=== PATIENT | male | born 1940 | race Caucasian/White ===

== ENCOUNTER 2022-09-21 15:42 | Inpatient (IN) | payer OTHER, SELFPAY ==
[2022-09-21 16:34] VITALS: BP 139/78; PULSE 78; RESP 18; TEMP 36.3; O2SAT 97
--- NOTE | 2022-09-21 19:15 | P.CONHOSP_ITS ---
History of Present Illness Data of Consult Service Date: 09/21/22 Primary Care Provider: Unknown Physician HPI Reason for consult: Admission H&P Pt is an 82-year-old male with a PMH significant for schizophrenia, bipolar disorder, xuq-jetlroa-srnnvyhic DM, diabetic neuropathy, diastolic CHF, and history of bladder cancer who was seen for cy psych admission H&P. Patient seen and evaluated in his room where he was noted to have resting tremors of upper extremities bilaterally. Patient alert and oriented x3. He voices no acute medical concerns at this time, but does state that he would like to leave and go home as soon as possible. Patient denies chest pain/pressure, palpitations. No shortness of breath. Denies fever, chills, nausea, vomiting, abdominal pain. Of note patient is a transfer from [facility] where he presented due to confusion, paranoia, disorganized thoughts, and suicidal ideation. In the hospital he had a fall and was evaluated for a stroke. MRI showed global cerebral volume loss especially in the frontal and temporal lobes that was consistent with Alzheimer's. MRI showed mild narrowing of the proximal right common carotid but no evidence of acute stroke. Review of Systems Review of Systems: Patient denies any acute complaints No chest pain/pressure, palpitations No shortness of breath Denies abdominal pain, fever, chills, nausea, vomiting Yes all other systems are reviewed and are negative [facility] Medical History (Updated 09/21/22 @ 19:45 by SUNITHA Frye) Bladder cancer Diastolic CHF Social History Household Members: None Housing: House Do you presently have visiting nurse or other home services: Yes Patient Tobacco Use Status: Never used Tobacco Use of substances other than those prescribed or required for medical reasons: No Have you been hit, kicked, punched, or otherwise hurt by someone within the past year? If so, by whom?: No Do you feel safe in your current relationship?: No Current Relationship Is there a partner from a previous relationship who is making you feel unsafe now?: No Are you made to feel afraid or neglected: No Advance Directives: No Advance Directives Information Provided: Yes Do you have thoughts of harming others: None Do you have a plan to hurt others: No Plan Recently lost weight without trying: No Nutrition Risks: No Nutritional Risk Poor oral hygiene: No Meds Allergies Allergy/AdvReac Type Severity Reaction Status Date / Time primidone AdvReac Unknown Verified 09/21/22 19:52 Active Medications: Current Medications Acetaminophen (Acetaminophen 325 Mg Tablet) 650 mg PO Q6H PRN PRN Reason: Headache/Pain Mild Scale (1-3) Al Hydroxide/Mg Hydroxide (Magnesium Hydrox/Alum Hydrox 30 Ml Oral.Susp) 30 ml PO Q6H PRN PRN Reason: Heartburn/Nausea Hydroxyzine HCl (Hydroxyzine Hcl 25 Mg Tablet) 25 mg PO Q6H PRN PRN Reason: Anxiety Magnesium Hydroxide (Milk Of Magnesia 30 Ml Oral.Susp) 30 ml PO DAILY PRN PRN Reason: Constipation Pharmacy Consult (Consult Rx Perform Med Rec) 1 each MISCELLANE ONCE PRN PRN Reason: Consult order Trazodone HCl (Trazodone Hcl 50 Mg Tablet) 50 mg PO BEDTIME PRN PRN Reason: Insomnia Home Medications Medication Instructions Recorded Confirmed Last Taken Type acetaminophen 325 mg tablet 650 mg PO Q6H PRN Pain 09/21/22 09/21/22 Unknown History aspirin 81 09/21/22 Unknown History bumetanide 2 mg PO QAM 09/21/22 09/21/22 Unknown History cholecalciferol (vitamin D3) 1,000 units BID 09/21/22 09/21/22 Unknown History dextroamphetamine sulfate 10 mg 10 mg PO DAILY 09/21/22 09/21/22 Unknown History tablet divalproex 250 mg tablet,extended 500 mg PO BEDTIME 09/21/22 09/21/22 Unknown History release 24 hr divalproex 250 mg tablet,extended 750 mg PO QAM 09/21/22 09/21/22 Unknown History release 24 hr docusate sodium 100 mg capsule 100 mg PO BID 09/21/22 09/21/22 Unknown History (Colace) enoxaparin 40 mg subcut DAILY 09/21/22 09/21/22 Unknown History ferrous sulfate 325 mg PO QAM 09/21/22 09/21/22 Unknown History finasteride 5 mg tablet 5 mg PO DAILY 09/21/22 09/21/22 Unknown History gabapentin 400 mg capsule 400 mg PO BID 09/21/22 09/21/22 Unknown History insulin lispro 100 unit/mL 1 sliding scale dose subcut 09/21/22 09/21/22 Unknown History subcutaneous solution USEASDIRECTD memantine 10 mg tablet 10 mg PO BID 09/21/22 09/21/22 Unknown History metformin 1,000 mg tablet,extended 1,000 mg PO BID 09/21/22 09/21/22 Unknown History release 24hr polyethylene glycol 3350 17 gram 17 g PO BID 09/21/22 09/21/22 Unknown History oral powder packet (Miralax) potassium chloride 10 meq PO BID 09/21/22 09/21/22 Unknown History pravastatin 10 mg tablet 10 mg PO DAILY 09/21/22 09/21/22 Unknown History risperidone 1 mg tablet 1 mg PO DAILY 09/21/22 09/21/22 Unknown History risperidone 2 mg tablet 2 mg PO BEDTIME 09/21/22 09/21/22 Unknown History rosuvastatin 40 mg tablet 40 mg PO DAILY 09/21/22 09/21/22 Unknown History sennosides 8.6 mg tablet (senna) 8.6 mg PO BEDTIME 09/21/22 09/21/22 Unknown History trazodone 50 mg tablet 75 mg PO BEDTIME 09/21/22 09/21/22 Unknown History Physical Exam Vital Signs and Narrative: Vital Signs: Last Vital Signs Temp 97.4 F 09/21/22 16:34 Pulse 78 09/21/22 16:34 Resp 18 09/21/22 16:34 BP 139/78 09/21/22 16:34 Pulse Ox 97 09/21/22 16:34 O2 Del Method 09/21/22 16:34 Constitutional: Alert, in no acute distress. Mental Status: Oriented to person, place and time. Eyes: Pupils are equal, round, and reactive to light. Ear, Nose, and Throat: Oropharynx clear, mucous membranes moist. Ears and nose without deformities. Trachea midline. Respiratory: Clear to auscultation bilaterally. No wheezing, rales, or rhonchi. Cardiovascular: S1, S2 regular. No murmurs, rubs, or gallops. Gastrointestinal: Abdomen soft, non-tender, non-distended. Normal bowel sounds. Neurologic: Cranial nerves II-XII are grossly intact. No focal neurological deficits noted. Moves all extremities spontaneously. resting tremors of both upper extremities. Skin: No rashes or lesions noted. Musculoskeletal: 5/5 strength of upper and lower extremities bilaterally. Extremities: No edema. Psychiatric: Normal mood and affect. Assessment and Plan (1) Diet-controlled diabetes mellitus: Status: Acute (2) Schizophrenia: Status: Acute (3) Bipolar disorder: Status: Acute Plan Pt is an 82-year-old male with a PMH significant for schizophrenia, bipolar disorder, put-mkzmghj-mlilqxezc DM, diabetic neuropathy, diastolic CHF, and history of bladder cancer who was seen for cy psych admission H&P. Pt does not have an acute medical complaints at this time. 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 Signing off at this time. Please contact us if there are any additional questions or concerns. Time Spent With Patient Time: Total time managing care of this patient today ____ minutes.
[2022-09-21 20:14] LABS: Glucose, Whole Blood 152 mg/dL (60-115)
--- NOTE | 2022-09-21 20:27 | PC.ADMIT ---
Patient admitted from [facility] with PMH of schizophrenia, bipolar disorder, non-insulin dependent diabetes, diabetic neuropathy, CHF, HX of bladder cancer. Patient noted to have bilateral resting tremors of upper extremitites. Patient alert and oriented x3. States he is here to get my meds adjusted . Patient further states, 'I want to get out of here and go home. Patient presented in hospital attire, neatly groomed, pleasant and cooperative with admission. Patient notes indicate he fell at [facility] in ED where he presented d/t confusion, paranoia, disorganized thoughts and suicidal ideation. When questioned by TW about the SI patient stated, I love myself. Why would I want to hurt myself?. Patient denies acute complaints as well as Si/HI/AVH. Patient is able to ambulate independently with walker. Utilizing briefs d/t intermittent incontinence. Patient reports using CPAP which will be brought in by daughter.
[2022-09-21] MEDS: Gabapentin 400 MG CAPSULE PO (21:39)
[2022-09-21] MEDS: Divalproex Sodium ER 500 MG TAB.ER.24H PO (21:39)
[2022-09-21] MEDS: risperiDONE 2 MG TABLET PO (21:39)
[2022-09-21] MEDS: Memantine HCl 10 MG TABLET PO (21:39)
[2022-09-21] MEDS: Docusate Sodium 100 MG CAPSULE PO (21:39)
[2022-09-21] MEDS: traZODone HCL 25 MG HALFTAB 75 MG PO (21:39)
[2022-09-21 21:48] VITALS: BP 128/77; PULSE 90; RESP 20; TEMP 36.2; O2SAT 94
--- NOTE | 2022-09-21 22:50 | PHA.MEDREC ---
Pharmacy Consult ? Medication Reconciliation Pharmacy has completed the medication reconciliation. med list obtained from doc and updated in med rec... dr. bailey notified of changes.
[2022-09-22] MEDS: Acetaminophen 325 MG TABLET 650 MG PO (04:15)
[2022-09-22] MEDS: hydrOXYzine HCL 25 MG TABLET PO (04:16)
--- NOTE | 2022-09-22 08:12 | HO.PSYADMNOT ---
HPI Date of Service: 09/22/22 Chief Complaint: SI Sources of Information: patient interviewed, chart reviewed and crisis/core team assessment reviewed Additional Sources of Information: Daughter HPI Subjective Notes: Garcia Warning and Conditional Voluntary Narrative: Mr. Melchor is a 82 year-old male with hx of schizophrenia who was brought to [facility] due to increase depression and suicidal ideation. In the ED, pt denied any signs of depression and denies suicidal ideation. He appears to have some degree of memory impairments as he was not able to recall events leading to him going to the hospital. Per [employer] crisis assessment, pt's daughter and [facility] RN reported that pt has been reporting increase depression and suicidal thoughts which appear to be related to him starting amantadine some months ago (this is a potential side effect of amantadine). On the unit, pt presents as pleasant and denies suicidal ideation. Pt reports he is doing well and hopes to go home soon. He does not remember telling anyone that he had suicidal ideation. He reports I think this is punishment. He denies VH/AH and does not appear internally preoccupied. He is oriented to place, month and year but not situation and appears to struggle retaining information regarding days prior and reason for him to be brought up to the hospital. Past Psychiatric History: Inpt: multiple in the past but no dates or places reported by pt or daughter OP: MIGUEL ÁNGEL Hooper Suicide attempts: none Past medication trials: risperidone Medical Evaluation Reviewed: Yes MRI completed while at [facility] showed global cerebral volume loss in frontal and temporal lobes. Narrowing of the proximal right common carotid but no evidence of acute stroke. [facility] Medical History (Updated 09/21/22 @ 19:45 by SUNITHA Frye) Bladder cancer Diastolic CHF Diagnostics Labs 09/22/22 08:09 Meds/Allergies Meds Home Medications Medication Instructions Recorded Confirmed Type acetaminophen 325 mg tablet 650 mg PO Q6H PRN Pain 09/21/22 09/21/22 History aspirin 81 mg tablet,delayed 81 mg PO DAILY 09/21/22 09/21/22 History release bumetanide 2 mg tablet 2 mg PO DAILY 09/21/22 09/21/22 History cholecalciferol (vitamin D3) 25 25 mcg PO BID 09/21/22 09/21/22 History mcg (1,000 unit) tablet dextroamphetamine sulfate 10 mg 10 mg PO DAILY 09/21/22 09/21/22 History tablet divalproex 250 mg tablet,extended 750 mg PO BID 09/21/22 09/21/22 History release 24 hr docusate sodium 100 mg capsule 100 mg PO BID PRN Constipation 09/21/22 09/21/22 History (Colace) enoxaparin 40 mg/0.4 mL 40 mg subcut DAILY 09/21/22 09/21/22 History subcutaneous syringe ferrous sulfate 325 mg (65 mg 325 mg PO DAILY 09/21/22 09/21/22 History iron) tablet finasteride 5 mg tablet 5 mg PO DAILY 09/21/22 09/21/22 History gabapentin 400 mg capsule 400 mg PO BID 09/21/22 09/21/22 History insulin lispro 100 unit/mL 1 sliding scale dose subcut 09/21/22 09/21/22 History subcutaneous solution USEASDIRECTD memantine 10 mg tablet 10 mg PO BID 09/21/22 09/21/22 History polyethylene glycol 3350 17 gram 17 g PO BID 09/21/22 09/21/22 History oral powder packet (Miralax) potassium chloride 10 mEq 10 meq PO BID 09/21/22 09/21/22 History capsule,extended release risperidone 1 mg tablet 1 mg PO DAILY 09/21/22 09/21/22 History risperidone 2 mg tablet 2 mg PO BEDTIME 09/21/22 09/21/22 History risperidone microspheres 50 mg/2 50 mg IM Q14D 09/21/22 09/22/22 History mL intramuscular susp,ext release (Risperdal Consta) rosuvastatin 40 mg tablet 40 mg PO BEDTIME 09/21/22 09/21/22 History sennosides 8.6 mg tablet (senna) 17.2 mg PO BEDTIME 09/21/22 09/22/22 History trazodone 50 mg tablet 75 mg PO BEDTIME PRN Sleep 09/21/22 09/21/22 History amantadine HCl 100 mg PO DAILY 09/22/22 09/22/22 History ascorbic acid (vitamin C) 500 mg PO DAILY 09/22/22 09/22/22 History metformin 1,000 mg PO BID 09/22/22 09/22/22 History mineral oil-hydrophil petrolat 1 appl topical DAILY PRN Dry Skin 09/22/22 09/22/22 History topical ointment (Aquaphor topical ointment) Allergies Allergies Allergy/AdvReac Type Severity Reaction Status Date / Time primidone AdvReac Unknown Verified 09/21/22 19:52 Mental Status Exam Mental Status Exam Narrative: Appearance: wearing hospital gown, fair hygiene, in NAD Behavior: cooperative Psychomotor: bilat resting tremors Speech: clear, regular rate/rhythm/volume, spontaneous TP: mostly linear TC: no overt psychosis or delusions Mood: good Affect: congruent, brightens at times SI: denies HI: denies AH/VH: none Delusions: none reported or noted Insight/judgment: impaired secondary to memory/cog impairments Memory/cog: alert, oriented to place, month, year, not situation, unable to recall events leading to this hospitalization. pending MOCA. Assessment & Plan Assessment & Plan (1) Schizophrenia: Status: Acute Code(s): F20.9 - Schizophrenia, unspecified Plan Mr. Melchor is a 82 year-old male with hx of schizophrenia. Pt was brought to [facility] due recurrent depression and suicidal ideation with no plan since he was started on amantadine (this is common side effect). Pt also presents with cognitive and memory impairments, unable to recall events leading to this admission. Amantadine has been stopped for 2 weeks. Pt has presented with bright affect, denies suicidal or homicidal ideation. No signs of aggression towards self or others. Pt does not appear with active psychosis or delusional content. PLAN 1. admit to s1, cv, 15 minutes checks for safety 2. stop amantadine, continue op medications including risperidone consta and dextroamphetamine 10mg po daily. 3. obtain collateral information 4. Aftercare planning. Patient educated on: diagnosis Reason for continued inpatient stay Substantial Risk for: harm to self and inability to function Statement Statement: I have reviewed the history and physical and performed a pertinent examination on my patient. No changes have occurred unless specified. If the History and Physical was not performed prior to admission, the Hospitalist's service will be consulted for completing the admission physical. Time Spent With Patient Time: Total time managing care of this patient today ____ minutes.
[2022-09-22 08:30] VITALS: BP 139/76; PULSE 85; RESP 18; TEMP 36.2; O2SAT 98
[2022-09-22] MEDS: Gabapentin 400 MG CAPSULE PO ×2 (08:30→20:10)
[2022-09-22] MEDS: Aspirin Enteric Coated 81 MG TABLET.DR PO (08:30)
[2022-09-22] MEDS: Bumetanide 1 MG TABLET 2 MG PO (08:30)
[2022-09-22] MEDS: risperiDONE 1 MG TABLET PO (08:30)
[2022-09-22] MEDS: Dextroamphetamine Sulfate 5 MG TABLET 10 MG PO (08:31)
[2022-09-22] MEDS: Memantine HCl 10 MG TABLET PO ×2 (08:31→20:10)
[2022-09-22] MEDS: Pravastatin Sodium 10 MG TABLET PO (08:31)
[2022-09-22] MEDS: Divalproex Sodium ER 250 MG TAB.ER.24H 750 MG PO ×2 (08:32→20:09)
[2022-09-22] MEDS: Docusate Sodium 100 MG CAPSULE PO ×2 (08:32→20:10)
[2022-09-22] MEDS: Cholecalciferol (Vitamin D3) 25 MCG TABLET PO ×2 (08:33→20:10)
[2022-09-22] MEDS: Ferrous Sulfate 324 MG TABLET.DR PO (08:33)
[2022-09-22] MEDS: Finasteride 5 MG TABLET PO (08:34)
[2022-09-22] MEDS: polyethylene glycoL 3350 17 GM POWD.PACK PO ×2 (08:34→20:10)
[2022-09-22 08:43] LABS: Estimated Average Glucose 100 mg/dL; Hemoglobin A1c % 5.1 %
[2022-09-22 08:49] LABS: Alanine Aminotransferase 11 U/L (0-40); Albumin Level 3.4 g/dL (3.5-5.0); Alkaline Phosphatase 33 U/L (39-117); Anion Gap 11 (12-20); Aspartate Amino Transferase 12 U/L (5-37); Bilirubin Total 0.5 mg/dL (0.0-1.0); Blood Urea Nitrogen 30 mg/dL (9-16); Calcium 9.2 mg/dL (8.4-10.2); Carbon Dioxide 31 mmol/L (22-29); Chloride 103 mmol/L (96-108); Cholesterol 95 mg/dL; Estimated Glomerular Filt Rate 57; Glucose Fasting 101 mg/dL (60-99); HDL Cholesterol 30 mg/dL; LDL Cholesterol Calculated 44 mg/dl; Potassium 4.2 mmol/L (3.3-5.1); Sodium 141 mmol/L (135-145); Total Protein 5.8 g/dL (6.5-8.0); Triglycerides 105 mg/dL
[2022-09-22 09:05] LABS: Thyroid Stimulating Hormone 0.65 uIU/mL (0.32-4.0)
[2022-09-22 09:20] LABS: Folate 7.3 ng/mL (> or = 4.0); Vitamin B12 238 pg/mL (200-900)
[2022-09-22] MEDS: Enoxaparin Sodium 40 MG/0.4 ML SYRINGE SUBCUT (09:27)
[2022-09-22 16:28] LABS: Glucose, Whole Blood 214 mg/dL (60-115)
[2022-09-22] MEDS: Insulin Lispro 100 UNIT/ML 3 ML VIAL SUBCUT (16:45)
[2022-09-22 18:00] VITALS: BP 152/94; PULSE 84; RESP 20; TEMP 36.6; O2SAT 97
--- NOTE | 2022-09-22 18:48 | PC.NURSE ---
Meds verified with Bebe Washington Rn oupt nurse at [facility]. Daughter brought in pt's Risperdal Consta and Adderall. Risperdal Consta 50 mg IM administered this shift in left deltoid, site of pt's choice. Pt tolerated well.
[2022-09-22 19:55] LABS: Glucose, Whole Blood 104 mg/dL (60-115)
[2022-09-22] MEDS: risperiDONE 2 MG TABLET PO (20:10)
[2022-09-22] MEDS: Atorvastatin Calcium 80 MG TABLET PO (20:10)
[2022-09-22] MEDS: Sennosides 8.6 MG TABLET PO (20:10)
[2022-09-22] MEDS: traZODone HCL 25 MG HALFTAB 75 MG PO (20:58)
[2022-09-23 06:00] VITALS: BP 131/72; PULSE 89; RESP 18; TEMP 36.1; O2SAT 96
[2022-09-23 07:55] LABS: Glucose, Whole Blood 83 mg/dL (60-115)
--- NOTE | 2022-09-23 08:50 | P.PNPSI_ITS ---
Subjective Subjective Date of Service: 09/23/22 Reason For Visit: SI Subjective Notes: Conditional Voluntary Interim History: The nursing staff reported the patient received her Risperdal Consta yesterday. He has refused CPAP at night since he does not like to be on one-to-one. His fasting blood sugar has been on 08/30 today in the morning. She takes the Zypre xa every night and the staff has noticed artery dyskinesia. On interview the patient is alert oriented x4, cooperative and pleasant and reports feeling dysphoric. Able to contract for safety in the facility. Mental Status Exam Mental Status Exam Patient Orientation: Person and Situation Level of Consciousness: Awake and Appropriate Patient Behavior: Guarded and Passive Mood Description: Withdrawn Affect Description: Constricted Patient Cognition Impaired: Yes Ability to Follow Directions: Good Speech Pattern: Clear Hallucinations: Auditory Delusions: Paranoid Ideation Thought Process: Goal Oriented and Slowed Thinking Thought Content: positive for [place], positive for Circumstantial, positive for Perseveration and positive for Poverty of Content Judgement: Fair Diagnostics Vital Signs (24Hr): Vital Signs - 24 hr 09/22/22 18:00 Temperature 97.8 F Pulse Rate 84 Respiratory Rate 20 Blood Pressure 152/94 H Pulse Oximetry 97 Oxygen Delivery Method Room Air Labs 09/22/22 08:09 Labs: Laboratory Results - last 48 hr 09/21/22 09/22/22 09/22/22 20:10 08:09 08:09 Sodium 141 Potassium 4.2 Chloride 103 Carbon Dioxide 31 H Anion Gap 11 L BUN 30 H Creatinine 1.22 Estim Creat Clear Calc TNP Estimated GFR 57 POC Glucose 152 H Fasting Glucose 101 H Estimat Average Glucose 100 Hemoglobin A1c % 5.1 Calcium 9.2 Total Bilirubin 0.5 AST 12 ALT 11 Alkaline Phosphatase 33 L Total Protein 5.8 L Albumin 3.4 L Triglycerides 105 Cholesterol 95 LDL Cholesterol, Calc 44 HDL Cholesterol 30 Vitamin B12 Folate TSH 0.65 09/22/22 09/22/22 09/22/22 08:09 16:22 19:50 Sodium Potassium Chloride Carbon Dioxide Anion Gap BUN Creatinine Estim Creat Clear Calc Estimated GFR POC Glucose 214 H 104 Fasting Glucose Estimat Average Glucose Hemoglobin A1c % Calcium Total Bilirubin AST ALT Alkaline Phosphatase Total Protein Albumin Triglycerides Cholesterol LDL Cholesterol, Calc HDL Cholesterol Vitamin B12 238 Folate 7.3 TSH 09/23/22 07:49 Sodium Potassium Chloride Carbon Dioxide Anion Gap BUN Creatinine Estim Creat Clear Calc Estimated GFR POC Glucose 83 Fasting Glucose Estimat Average Glucose Hemoglobin A1c % Calcium Total Bilirubin AST ALT Alkaline Phosphatase Total Protein Albumin Triglycerides Cholesterol LDL Cholesterol, Calc HDL Cholesterol Vitamin B12 Folate TSH Medications Medications Current Medications Acetaminophen (Acetaminophen 325 Mg Tablet) 650 mg PO Q6H PRN PRN Reason: Headache/Pain Mild Scale (1-3) Last Admin: 09/22/22 04:15 Dose: 650 mg Al Hydroxide/Mg Hydroxide (Magnesium Hydrox/Alum Hydrox 30 Ml Oral.Susp) 30 ml PO Q6H PRN PRN Reason: Heartburn/Nausea Ascorbic Acid (Ascorbic Acid 500 Mg Tablet) 500 mg PO DAILY [facility] Aspirin (Aspirin Enteric Coated 81 Mg Tablet.) 81 mg PO DAILY [facility] Last Admin: 09/22/22 08:30 Dose: 81 mg Atorvastatin Calcium (Atorvastatin Calcium 80 Mg Tablet) 80 mg PO BEDTIME [facility] Last Admin: 09/22/22 20:10 Dose: 80 mg Bumetanide (Bumetanide 1 Mg Tablet) 2 mg PO DAILY [facility] Last Admin: 09/22/22 08:30 Dose: 2 mg Dextrose (Dextrose 50 % 25 Gm/50 Ml Syringe) 25 gm IVPUSH Q15M PRN; Protocol PRN Reason: per Hypoglycemia Standing Ord. Divalproex Sodium (Divalproex Sodium Er 250 Mg Tab.Er.24h) 750 mg PO BID [facility] Last Admin: 09/22/22 20:09 Dose: 750 mg Docusate Sodium (Docusate Sodium 100 Mg Capsule) 100 mg PO BID [facility] Last Admin: 09/22/22 20:10 Dose: 100 mg Enoxaparin Sodium (Enoxaparin Sodium 40 Mg/0.4 Ml Syringe) 40 mg SUBCUT DAILY [facility] Last Admin: 09/22/22 09:27 Dose: 40 mg Ferrous Sulfate (Ferrous Sulfate 324 Mg Tablet.) 324 mg PO DAILY [facility] Last Admin: 09/22/22 08:33 Dose: 324 mg Finasteride (Finasteride 5 Mg Tablet) 5 mg PO DAILY [facility] Last Admin: 09/22/22 08:34 Dose: 5 mg Gabapentin (Gabapentin 400 Mg Capsule) 400 mg PO BID [facility] Last Admin: 09/22/22 20:10 Dose: 400 mg Glucose (Glucose Gel 15 Gm Gel..Gram.) 15 gm PO Q15M PRN; Protocol PRN Reason: per Hypoglycemia Standing Ord. Hydroxyzine HCl (Hydroxyzine Hcl 25 Mg Tablet) 25 mg PO Q6H PRN PRN Reason: Anxiety Last Admin: 09/22/22 04:16 Dose: 25 mg Insulin Human Lispro (Insulin Lispro 100 Unit/Ml 3 Ml Vial) 0 unit SUBCUT QIDACHS [facility]; Protocol Last Admin: 09/23/22 08:36 Dose: Not Given Magnesium Hydroxide (Milk Of Magnesia 30 Ml Oral.Susp) 30 ml PO DAILY PRN PRN Reason: Constipation Memantine (Memantine Hcl 10 Mg Tablet) 10 mg PO BID [facility] Last Admin: 09/22/22 20:10 Dose: 10 mg Pt Own (Risperdal (Consta 50 Mg)) 50 mg IM Q14D [facility] Last Admin: 09/22/22 15:17 Dose: 50 mg Pt Own ( Dextroamphetamine Sa 10 Mg) 10 mg PO MOTUWETHFR@0900 [facility] Polyethylene Glycol (Polyethylene Glycol 3350 17 Gm Powd.Pack) 17 gm PO BID [facility] Last Admin: 09/22/22 20:10 Dose: 17 gm Potassium Chloride (Potassium Chloride Er 10 Meq Capsule.Er) 10 meq PO BID [facility] Last Admin: 09/22/22 20:10 Dose: 10 meq Risperidone (Risperidone 1 Mg Tablet) 1 mg PO DAILY [facility] Last Admin: 09/22/22 08:30 Dose: 1 mg Risperidone (Risperidone 2 Mg Tablet) 2 mg PO BEDTIME [facility] Last Admin: 09/22/22 20:10 Dose: 2 mg Senna (Sennosides 8.6 Mg Tablet) 8.6 mg PO BEDTIME [facility] Last Admin: 09/22/22 20:10 Dose: 8.6 mg Trazodone HCl (Trazodone Hcl 25 Mg Halftab) 75 mg PO BEDTIME PRN PRN Reason: Sleep Last Admin: 09/22/22 20:58 Dose: 75 mg Vitamin D (Cholecalciferol (Vitamin D3) 25 Mcg Tablet) 25 mcg PO BID [facility] Last Admin: 09/22/22 20:10 Dose: 25 mcg Allergies Allergies Allergy/AdvReac Type Severity Reaction Status Date / Time primidone AdvReac Unknown Verified 09/21/22 19:52 Assessment & Plan Assessment & Plan (1) Diet-controlled diabetes mellitus: Status: Acute Code(s): E11.9 - Type 2 diabetes mellitus without complications (2) Schizophrenia: Status: Acute Code(s): F20.9 - Schizophrenia, unspecified (3) Bipolar disorder: Status: Acute Code(s): F31.9 - Bipolar disorder, unspecified Plan Pt is an 82-year-old male with a PMH significant for schizophrenia, bipolar disorder, qpo-ykidutm-mxzxxumub DM, diabetic neuropathy, diastolic CHF, and history of bladder cancer who was seen for cy psych admission H&P. Pt does not have an acute medical complaints at this time. 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 Signing off at this time. Please contact us if there are any additional questions or concerns. Psychiatry plan 1. Gather collateral information. 2. Continue antipsychotics and mood stabilizers. 3. Continue medical workout Reason for contiued inpatient stay Substantial Risk for: inability to function, rapid decompensation and med/psych decompensation Time Spent With Patient Time: Total time managing care of this patient today _20___ minutes.
[2022-09-23] MEDS: risperiDONE 1 MG TABLET PO (09:08)
[2022-09-23] MEDS: Aspirin Enteric Coated 81 MG TABLET.DR PO (09:08)
[2022-09-23] MEDS: Cholecalciferol (Vitamin D3) 25 MCG TABLET PO ×2 (09:08→20:18)
[2022-09-23] MEDS: Docusate Sodium 100 MG CAPSULE PO ×2 (09:09→20:18)
[2022-09-23] MEDS: Finasteride 5 MG TABLET PO (09:09)
[2022-09-23] MEDS: Bumetanide 1 MG TABLET 2 MG PO (09:09)
[2022-09-23] MEDS: Divalproex Sodium ER 250 MG TAB.ER.24H 750 MG PO ×2 (09:09→20:18)
[2022-09-23] MEDS: Ferrous Sulfate 324 MG TABLET.DR PO (09:09)
[2022-09-23] MEDS: Ascorbic Acid 500 MG TABLET PO (09:09)
[2022-09-23] MEDS: Memantine HCl 10 MG TABLET PO ×2 (09:09→20:18)
[2022-09-23] MEDS: Gabapentin 400 MG CAPSULE PO ×2 (09:09→20:18)
[2022-09-23] MEDS: Enoxaparin Sodium 40 MG/0.4 ML SYRINGE SUBCUT (09:10)
[2022-09-23] MEDS: polyethylene glycoL 3350 17 GM POWD.PACK PO ×2 (09:10→20:19)
[2022-09-23 11:29] LABS: Glucose, Whole Blood 106 mg/dL (60-115)
[2022-09-23 16:37] LABS: Glucose, Whole Blood 120 mg/dL (60-115)
[2022-09-23 18:00] VITALS: BP 140/75; PULSE 77; RESP 17; TEMP 36.4; O2SAT 96
[2022-09-23 20:07] LABS: Glucose, Whole Blood 116 mg/dL (60-115)
[2022-09-23] MEDS: Atorvastatin Calcium 80 MG TABLET PO (20:18)
[2022-09-23] MEDS: Sennosides 8.6 MG TABLET PO (20:18)
[2022-09-23] MEDS: risperiDONE 2 MG TABLET PO (20:18)
[2022-09-23] MEDS: traZODone HCL 25 MG HALFTAB 75 MG PO (20:29)
[2022-09-24 07:30] VITALS: BP 129/75; PULSE 75; RESP 16; TEMP 36.8; O2SAT 94
[2022-09-24 07:43] LABS: Glucose, Whole Blood 115 mg/dL (60-115)
--- NOTE | 2022-09-24 09:05 | P.PNPSI_ITS ---
Subjective Subjective Date of Service: 09/24/22 Reason For Visit: SI Subjective Notes: Section 7 and Section 8 Interim History: The nursing staff reported the patient used his CPAP machine last night. His fasting blood sugars were in a good range no need of coverage. He ambulates with a walker he denies new complaints and he had been fully compliant with treatment. His tremors are very noticeable. He slept well last night. On interview the patient denies new symptoms. He remains internally preoccupied. He got his Risperdal Consta to days ago Mental Status Exam Mental Status Exam Patient Appearance: Appropriate Patient Orientation: Person and Situation Level of Consciousness: Restless and Alert Patient Behavior: Guarded and Passive Mood Description: Withdrawn Affect Description: Constricted Patient Cognition Impaired: Yes Ability to Follow Directions: Good Speech Pattern: Impoverished and Monotone Hallucinations: None Delusions: Paranoid Ideation Thought Process: Distracted and Slowed Thinking Thought Content: positive for [place], positive for Poverty of Content and positive for Tangential Judgement: Fair Diagnostics Vital Signs (24Hr): Vital Signs - 24 hr 09/23/22 18:00 Temperature 97.5 F Pulse Rate 77 Respiratory Rate 17 Blood Pressure 140/75 H Pulse Oximetry 96 Oxygen Delivery Method Room Air Labs 09/22/22 08:09 Labs: Laboratory Results - last 48 hr 09/22/22 09/22/22 09/22/22 08:09 08:09 16:22 POC Glucose 214 H Vitamin B12 238 Folate 7.3 TSH 0.65 09/22/22 09/23/22 09/23/22 19:50 07:49 11:23 POC Glucose 104 83 106 Vitamin B12 Folate TSH 09/23/22 09/23/22 09/24/22 16:26 19:58 07:38 POC Glucose 120 H 116 H 115 Vitamin B12 Folate TSH Medications Medications Current Medications Acetaminophen (Acetaminophen 325 Mg Tablet) 650 mg PO Q6H PRN PRN Reason: Headache/Pain Mild Scale (1-3) Last Admin: 09/22/22 04:15 Dose: 650 mg Al Hydroxide/Mg Hydroxide (Magnesium Hydrox/Alum Hydrox 30 Ml Oral.Susp) 30 ml PO Q6H PRN PRN Reason: Heartburn/Nausea Ascorbic Acid (Ascorbic Acid 500 Mg Tablet) 500 mg PO DAILY [facility] Last Admin: 09/23/22 09:09 Dose: 500 mg Aspirin (Aspirin Enteric Coated 81 Mg Tablet.Dr) 81 mg PO DAILY [facility] Last Admin: 09/23/22 09:08 Dose: 81 mg Atorvastatin Calcium (Atorvastatin Calcium 80 Mg Tablet) 80 mg PO BEDTIME [facility] Last Admin: 09/23/22 20:18 Dose: 80 mg Bumetanide (Bumetanide 1 Mg Tablet) 2 mg PO DAILY [facility] Last Admin: 09/23/22 09:09 Dose: 2 mg Dextrose (Dextrose 50 % 25 Gm/50 Ml Syringe) 25 gm IVPUSH Q15M PRN; Protocol PRN Reason: per Hypoglycemia Standing Ord. Divalproex Sodium (Divalproex Sodium Er 250 Mg Tab.Er.24h) 750 mg PO BID [facility] Last Admin: 09/23/22 20:18 Dose: 750 mg Docusate Sodium (Docusate Sodium 100 Mg Capsule) 100 mg PO BID [facility] Last Admin: 09/23/22 20:18 Dose: 100 mg Enoxaparin Sodium (Enoxaparin Sodium 40 Mg/0.4 Ml Syringe) 40 mg SUBCUT DAILY [facility] Last Admin: 09/23/22 09:10 Dose: 40 mg Ferrous Sulfate (Ferrous Sulfate 324 Mg Tablet.) 324 mg PO DAILY [facility] Last Admin: 09/23/22 09:09 Dose: 324 mg Finasteride (Finasteride 5 Mg Tablet) 5 mg PO DAILY [facility] Last Admin: 09/23/22 09:09 Dose: 5 mg Gabapentin (Gabapentin 400 Mg Capsule) 400 mg PO BID [facility] Last Admin: 09/23/22 20:18 Dose: 400 mg Glucose (Glucose Gel 15 Gm Gel..Gram.) 15 gm PO Q15M PRN; Protocol PRN Reason: per Hypoglycemia Standing Ord. Hydroxyzine HCl (Hydroxyzine Hcl 25 Mg Tablet) 25 mg PO Q6H PRN PRN Reason: Anxiety Last Admin: 09/22/22 04:16 Dose: 25 mg Insulin Human Lispro (Insulin Lispro 100 Unit/Ml 3 Ml Vial) 0 unit SUBCUT QIDACHS [facility]; Protocol Last Admin: 09/24/22 08:51 Dose: Not Given Magnesium Hydroxide (Milk Of Magnesia 30 Ml Oral.Susp) 30 ml PO DAILY PRN PRN Reason: Constipation Memantine (Memantine Hcl 10 Mg Tablet) 10 mg PO BID [facility] Last Admin: 09/23/22 20:18 Dose: 10 mg Pt Own (Risperdal (Consta 50 Mg)) 50 mg IM Q14D [facility] Last Admin: 09/22/22 15:17 Dose: 50 mg Pt Own ( Dextroamphetamine Sa 10 Mg) 10 mg PO MOTUWETHFR@0900 [facility] Polyethylene Glycol (Polyethylene Glycol 3350 17 Gm Powd.Pack) 17 gm PO BID [facility] Last Admin: 09/23/22 20:19 Dose: 17 gm Potassium Chloride (Potassium Chloride Er 10 Meq Capsule.Er) 10 meq PO BID [facility] Last Admin: 09/23/22 20:18 Dose: 10 meq Risperidone (Risperidone 1 Mg Tablet) 1 mg PO DAILY [facility] Last Admin: 09/23/22 09:08 Dose: 1 mg Risperidone (Risperidone 2 Mg Tablet) 2 mg PO BEDTIME [facility] Last Admin: 09/23/22 20:18 Dose: 2 mg Senna (Sennosides 8.6 Mg Tablet) 8.6 mg PO BEDTIME [facility] Last Admin: 09/23/22 20:18 Dose: 8.6 mg Trazodone HCl (Trazodone Hcl 25 Mg Halftab) 75 mg PO BEDTIME PRN PRN Reason: Sleep Last Admin: 09/23/22 20:29 Dose: 75 mg Vitamin D (Cholecalciferol (Vitamin D3) 25 Mcg Tablet) 25 mcg PO BID [facility] Last Admin: 09/23/22 20:18 Dose: 25 mcg Allergies Allergies Allergy/AdvReac Type Severity Reaction Status Date / Time primidone AdvReac Unknown Verified 09/21/22 19:52 Assessment & Plan Assessment & Plan (1) Diet-controlled diabetes mellitus: Status: Acute Code(s): E11.9 - Type 2 diabetes mellitus without complications (2) Schizophrenia: Status: Acute Code(s): F20.9 - Schizophrenia, unspecified (3) Bipolar disorder: Status: Acute Code(s): F31.9 - Bipolar disorder, unspecified Plan Pt is an 82-year-old male with a PMH significant for schizophrenia, bipolar disorder, [id number] DM, diabetic neuropathy, diastolic CHF, and history of bladder cancer who was seen for cy psych admission H&P. Pt does not have an acute medical complaints at this time. 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 Signing off at this time. Please contact us if there are any additional questions or concerns. Psychiatry plan 1. Gather collateral information. 2. Continue antipsychotics and mood stabilizers. 3. Continue medical workout Reason for contiued inpatient stay Substantial Risk for: inability to function, rapid decompensation and med/psych decompensation Time Spent With Patient Time: Total time managing care of this patient today __20__ minutes.
[2022-09-24] MEDS: Enoxaparin Sodium 40 MG/0.4 ML SYRINGE SUBCUT (09:06)
[2022-09-24] MEDS: Ferrous Sulfate 324 MG TABLET.DR PO (09:08)
[2022-09-24] MEDS: Memantine HCl 10 MG TABLET PO ×2 (09:08→20:56)
[2022-09-24] MEDS: Aspirin Enteric Coated 81 MG TABLET.DR PO (09:08)
[2022-09-24] MEDS: Bumetanide 1 MG TABLET 2 MG PO (09:08)
[2022-09-24] MEDS: Cholecalciferol (Vitamin D3) 25 MCG TABLET PO ×2 (09:08→20:56)
[2022-09-24] MEDS: polyethylene glycoL 3350 17 GM POWD.PACK PO ×2 (09:09→20:57)
[2022-09-24] MEDS: Gabapentin 400 MG CAPSULE PO ×2 (09:09→20:57)
[2022-09-24] MEDS: Ascorbic Acid 500 MG TABLET PO (09:09)
[2022-09-24] MEDS: Finasteride 5 MG TABLET PO (09:09)
[2022-09-24] MEDS: risperiDONE 1 MG TABLET PO (09:09)
[2022-09-24] MEDS: Docusate Sodium 100 MG CAPSULE PO ×2 (09:09→20:57)
[2022-09-24] MEDS: Divalproex Sodium ER 250 MG TAB.ER.24H 750 MG PO ×2 (10:57→20:56)
[2022-09-24 11:30] LABS: Glucose, Whole Blood 135 mg/dL (60-115)
[2022-09-24 16:46] LABS: Glucose, Whole Blood 149 mg/dL (60-115)
[2022-09-24 18:00] VITALS: BP 140/76; PULSE 86; RESP 18; TEMP 36.1; O2SAT 98
[2022-09-24] MEDS: Sennosides 8.6 MG TABLET PO (20:56)
[2022-09-24] MEDS: risperiDONE 2 MG TABLET PO (20:56)
[2022-09-24] MEDS: Atorvastatin Calcium 80 MG TABLET PO (20:57)
[2022-09-24 21:58] LABS: Glucose, Whole Blood 100 mg/dL (60-115)
[2022-09-25 06:00] VITALS: BP 148/69; PULSE 86; RESP 16; TEMP 36.7; O2SAT 98
[2022-09-25 07:48] LABS: Glucose, Whole Blood 132 mg/dL (60-115)
[2022-09-25] MEDS: Ascorbic Acid 500 MG TABLET PO (08:30)
[2022-09-25] MEDS: Divalproex Sodium ER 250 MG TAB.ER.24H 750 MG PO ×2 (08:30→21:27)
[2022-09-25] MEDS: Finasteride 5 MG TABLET PO (08:30)
[2022-09-25] MEDS: Aspirin Enteric Coated 81 MG TABLET.DR PO (08:31)
[2022-09-25] MEDS: Memantine HCl 10 MG TABLET PO ×2 (08:31→21:28)
[2022-09-25] MEDS: Cholecalciferol (Vitamin D3) 25 MCG TABLET PO ×2 (08:31→21:28)
[2022-09-25] MEDS: Bumetanide 1 MG TABLET 2 MG PO (08:31)
[2022-09-25] MEDS: Gabapentin 400 MG CAPSULE PO ×2 (08:31→21:28)
[2022-09-25] MEDS: Ferrous Sulfate 324 MG TABLET.DR PO (08:31)
[2022-09-25] MEDS: Docusate Sodium 100 MG CAPSULE PO ×2 (08:31→21:28)
[2022-09-25] MEDS: risperiDONE 1 MG TABLET PO (08:31)
[2022-09-25] MEDS: Enoxaparin Sodium 40 MG/0.4 ML SYRINGE SUBCUT (08:32)
[2022-09-25] MEDS: polyethylene glycoL 3350 17 GM POWD.PACK PO ×2 (08:32→21:26)
[2022-09-25 12:00] LABS: Glucose, Whole Blood 98 mg/dL (60-115)
--- NOTE | 2022-09-25 12:28 | HO.PSYCHPN ---
Subjective Subjective Date of Service: 09/25/22 Reason For Visit: SI Subjective Notes: Conditional Voluntary Interim History: We had meeting with daughter. Pt has denied suicidal or homicidal ideation throughout s admission. He can't recall events leading to this admission. Reportedly, when pt started on amantadine presented as much more depressed and expressing SI without a plan. Amantadine has been stopped. Pt slept through the night. He is visible on the unit, social and seen smiling throughout the day. We discussed cognitive decline and memory impairments. OT discussed with family results of ACL. Medication Compliance: Yes Side effects from medications: No Attending Groups: Yes Review of Systems Review of Systems Patient denies any acute complaints No chest pain/pressure, palpitations No shortness of breath Denies abdominal pain, fever, chills, nausea, vomiting Yes all other systems are reviewed and are negative Mental Status Exam Mental Status Exam Narrative: Appearance: wearing hospital gown, fair hygiene, in NAD Behavior: cooperative Psychomotor: bilat resting tremors Speech: clear, regular rate/rhythm/volume, spontaneous TP: mostly linear TC: no overt psychosis or delusions Mood: good Affect: congruent, brightens at times SI: denies HI: denies AH/VH: none Delusions: none reported or noted Insight/judgment: impaired secondary to memory/cog impairments Memory/cog: alert, oriented to place, month, year, not situation, unable to recall events leading to this hospitalization. pending MOCA. Diagnostics Vital Signs (24Hr): Vital Signs - 24 hr 09/25/22 18:00 Temperature 97.9 F Pulse Rate 78 Respiratory Rate 18 Blood Pressure 144/74 H Pulse Oximetry 94 Oxygen Delivery Method Room Air Labs 09/22/22 08:09 Labs: Laboratory Results - last 48 hr 09/24/22 09/24/22 09/24/22 11:22 16:39 21:50 POC Glucose 135 H 149 H 100 09/25/22 09/25/22 09/25/22 07:43 11:55 16:43 POC Glucose 132 H 98 118 H 09/25/22 09/26/22 21:23 07:49 POC Glucose 99 116 H Medications Medications Current Medications Acetaminophen (Acetaminophen 325 Mg Tablet) 650 mg PO Q6H PRN PRN Reason: Headache/Pain Mild Scale (1-3) Last Admin: 09/22/22 04:15 Dose: 650 mg Al Hydroxide/Mg Hydroxide (Magnesium Hydrox/Alum Hydrox 30 Ml Oral.Susp) 30 ml PO Q6H PRN PRN Reason: Heartburn/Nausea Ascorbic Acid (Ascorbic Acid 500 Mg Tablet) 500 mg PO DAILY [facility] Last Admin: 09/25/22 08:30 Dose: 500 mg Aspirin (Aspirin Enteric Coated 81 Mg Tablet.) 81 mg PO DAILY [facility] Last Admin: 09/25/22 08:31 Dose: 81 mg Atorvastatin Calcium (Atorvastatin Calcium 80 Mg Tablet) 80 mg PO BEDTIME [facility] Last Admin: 09/25/22 21:27 Dose: 80 mg Bumetanide (Bumetanide 1 Mg Tablet) 2 mg PO DAILY [facility] Last Admin: 09/25/22 08:31 Dose: 2 mg Dextrose (Dextrose 50 % 25 Gm/50 Ml Syringe) 25 gm IVPUSH Q15M PRN; Protocol PRN Reason: per Hypoglycemia Standing Ord. Divalproex Sodium (Divalproex Sodium Er 250 Mg Tab.Er.24h) 750 mg PO BID [facility] Last Admin: 09/25/22 21:27 Dose: 750 mg Docusate Sodium (Docusate Sodium 100 Mg Capsule) 100 mg PO BID [facility] Last Admin: 09/25/22 21:28 Dose: 100 mg Enoxaparin Sodium (Enoxaparin Sodium 40 Mg/0.4 Ml Syringe) 40 mg SUBCUT DAILY [facility] Last Admin: 09/25/22 08:32 Dose: 40 mg Ferrous Sulfate (Ferrous Sulfate 324 Mg Tablet.) 324 mg PO DAILY [facility] Last Admin: 09/25/22 08:31 Dose: 324 mg Finasteride (Finasteride 5 Mg Tablet) 5 mg PO DAILY [facility] Last Admin: 09/25/22 08:30 Dose: 5 mg Gabapentin (Gabapentin 400 Mg Capsule) 400 mg PO BID [facility] Last Admin: 09/25/22 21:28 Dose: 400 mg Glucose (Glucose Gel 15 Gm Gel..Gram.) 15 gm PO Q15M PRN; Protocol PRN Reason: per Hypoglycemia Standing Ord. Hydroxyzine HCl (Hydroxyzine Hcl 25 Mg Tablet) 25 mg PO Q6H PRN PRN Reason: Anxiety Last Admin: 09/22/22 04:16 Dose: 25 mg Insulin Human Lispro (Insulin Lispro 100 Unit/Ml 3 Ml Vial) 0 unit SUBCUT QIDACHS [facility]; Protocol Last Admin: 09/25/22 22:45 Dose: Not Given Magnesium Hydroxide (Milk Of Magnesia 30 Ml Oral.Susp) 30 ml PO DAILY PRN PRN Reason: Constipation Memantine (Memantine Hcl 10 Mg Tablet) 10 mg PO BID [facility] Last Admin: 09/25/22 21:28 Dose: 10 mg Pt Own (Risperdal (Consta 50 Mg)) 50 mg IM Q14D [facility] Last Admin: 09/22/22 15:17 Dose: 50 mg Pt Own ( Dextroamphetamine Sa 10 Mg) 10 mg PO MOTUWETHFR@0900 [facility] Last Admin: 09/25/22 08:34 Dose: 10 mg Polyethylene Glycol (Polyethylene Glycol 3350 17 Gm Powd.Pack) 17 gm PO BID [facility] Last Admin: 09/25/22 21:26 Dose: 17 gm Potassium Chloride (Potassium Chloride Er 10 Meq Capsule.Er) 10 meq PO BID [facility] Last Admin: 09/25/22 21:26 Dose: 10 meq Risperidone (Risperidone 1 Mg Tablet) 1 mg PO DAILY [facility] Last Admin: 09/25/22 08:31 Dose: 1 mg Risperidone (Risperidone 2 Mg Tablet) 2 mg PO BEDTIME [facility] Last Admin: 09/25/22 21:28 Dose: 2 mg Senna (Sennosides 8.6 Mg Tablet) 8.6 mg PO BEDTIME [facility] Last Admin: 09/25/22 21:27 Dose: 8.6 mg Trazodone HCl (Trazodone Hcl 25 Mg Halftab) 75 mg PO BEDTIME PRN PRN Reason: Sleep Last Admin: 09/23/22 20:29 Dose: 75 mg Vitamin D (Cholecalciferol (Vitamin D3) 25 Mcg Tablet) 25 mcg PO BID [facility] Last Admin: 09/25/22 21:28 Dose: 25 mcg Allergies Allergies Allergy/AdvReac Type Severity Reaction Status Date / Time primidone AdvReac Unknown Verified 09/21/22 19:52 Assessment & Plan Assessment & Plan (1) Schizophrenia: Status: Acute Code(s): F20.9 - Schizophrenia, unspecified (2) Diet-controlled diabetes mellitus: Status: Acute Code(s): E11.9 - Type 2 diabetes mellitus without complications Plan Pt is an 82-year-old male with a PMH significant for schizophrenia, bipolar disorder, [id number] DM, diabetic neuropathy, diastolic CHF, and history of bladder cancer who was seen for cy psych admission H&P. Pt does not have an acute medical complaints at this time. 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 Signing off at this time. Please contact us if there are any additional questions or concerns. Psychiatry plan 1. Gather collateral information. 2. Continue antipsychotics and mood stabilizers. 3. Continue medical workout 09/25 continue tx. dc/ tomorrow. Reason for contiued inpatient stay Substantial Risk for: stable for discharge Time Spent With Patient Time: Total time managing care of this patient today ____ minutes.
[2022-09-25 16:49] LABS: Glucose, Whole Blood 118 mg/dL (60-115)
[2022-09-25 18:00] VITALS: BP 144/74; PULSE 78; RESP 18; TEMP 36.6; O2SAT 94
[2022-09-25] MEDS: Atorvastatin Calcium 80 MG TABLET PO (21:27)
[2022-09-25] MEDS: Sennosides 8.6 MG TABLET PO (21:27)
[2022-09-25] MEDS: risperiDONE 2 MG TABLET PO (21:28)
[2022-09-25 21:39] LABS: Glucose, Whole Blood 99 mg/dL (60-115)
[2022-09-26 06:00] VITALS: BP 142/70; PULSE 80; RESP 18; TEMP 36.8
[2022-09-26 08:17] LABS: Glucose, Whole Blood 116 mg/dL (60-115)
--- NOTE | 2022-09-26 08:52 | PM.PSYDC ---
DS: Providers Provider Date of Service: 09/26/22 Date of admission: 09/21/22 15:42 Primary care physician: Unknown Physician Consults: 09/21/22 16:11 Consult to Hospitalist Routine Consulting Provider: Hospitalist Reason For Exam: Medical H&P DS: Diagnosis Discharge Diagnosis (1) Schizophrenia: Status: Acute (2) Diet-controlled diabetes mellitus: Status: Acute DS: Medications Discharge Medications Home Medications: Home Medications Medication Instructions Recorded Confirmed aspirin 81 mg tablet,delayed 81 mg PO DAILY 09/21/22 09/21/22 release bumetanide 2 mg tablet 2 mg PO DAILY 09/21/22 09/21/22 cholecalciferol (vitamin D3) 25 25 mcg PO BID 09/21/22 09/21/22 mcg (1,000 unit) tablet dextroamphetamine sulfate 10 mg 10 mg PO DAILY 09/21/22 09/21/22 tablet divalproex 250 mg tablet,extended 750 mg PO BID 09/21/22 09/21/22 release 24 hr enoxaparin 40 mg/0.4 mL 40 mg subcut DAILY 09/21/22 09/21/22 subcutaneous syringe ferrous sulfate 325 mg (65 mg 325 mg PO DAILY 09/21/22 09/21/22 iron) tablet finasteride 5 mg tablet 5 mg PO DAILY 09/21/22 09/21/22 gabapentin 400 mg capsule 400 mg PO BID 09/21/22 09/21/22 memantine 10 mg tablet 10 mg PO BID 09/21/22 09/21/22 polyethylene glycol 3350 17 gram 17 g PO BID 09/21/22 09/21/22 oral powder packet (Miralax) potassium chloride 10 mEq 10 meq PO BID 09/21/22 09/21/22 capsule,extended release risperidone microspheres 50 mg/2 50 mg IM Q14D 09/21/22 09/22/22 mL intramuscular susp,ext release (Risperdal Consta) rosuvastatin 40 mg tablet 40 mg PO BEDTIME 09/21/22 09/21/22 sennosides 8.6 mg tablet (senna) 17.2 mg PO BEDTIME 09/21/22 09/22/22 trazodone 50 mg tablet 75 mg PO BEDTIME PRN Sleep 09/21/22 09/21/22 ascorbic acid (vitamin C) 500 mg PO DAILY 09/22/22 09/22/22 Previous Rx's Medication Instructions Recorded docusate sodium 100 mg capsule 100 mg PO BID #0 caps 09/26/22 Mental Status Exam Mental Status Exam Narrative: Appearance: wearing hospital gown, fair hygiene, in NAD Behavior: cooperative Psychomotor: bilat resting tremors Speech: clear, regular rate/rhythm/volume, spontaneous TP: mostly linear TC: no overt psychosis or delusions Mood: good Affect: congruent, brightens at times SI: denies HI: denies AH/VH: none Delusions: none reported or noted Insight/judgment: impaired secondary to memory/cog impairments Memory/cog: alert, oriented to place, month, year, not situation, unable to recall events leading to this hospitalization. pending MOCA. Data Data Completed and Pending Completed studies during hospitalization [Text1]: 09/21/22 09/22/22 09/22/22 20:10 08:09 08:09 Sodium 141 Potassium 4.2 Chloride 103 Carbon Dioxide 31 H Anion Gap 11 L BUN 30 H Creatinine 1.22 Estim Creat Clear Calc TNP Estimated GFR 57 POC Glucose 152 H Fasting Glucose 101 H Estimat Average Glucose 100 Hemoglobin A1c % 5.1 Calcium 9.2 Total Bilirubin 0.5 AST 12 ALT 11 Alkaline Phosphatase 33 L Total Protein 5.8 L Albumin 3.4 L Triglycerides 105 Cholesterol 95 LDL Cholesterol, Calc 44 HDL Cholesterol 30 Vitamin B12 Folate TSH 0.65 09/22/22 09/22/22 09/22/22 08:09 16:22 19:50 Sodium Potassium Chloride Carbon Dioxide Anion Gap BUN Creatinine Estim Creat Clear Calc Estimated GFR POC Glucose 214 H 104 Fasting Glucose Estimat Average Glucose Hemoglobin A1c % Calcium Total Bilirubin AST ALT Alkaline Phosphatase Total Protein Albumin Triglycerides Cholesterol LDL Cholesterol, Calc HDL Cholesterol Vitamin B12 238 Folate 7.3 TSH 09/23/22 09/23/22 09/23/22 07:49 11:23 16:26 Sodium Potassium Chloride Carbon Dioxide Anion Gap BUN Creatinine Estim Creat Clear Calc Estimated GFR POC Glucose 83 106 120 H Fasting Glucose Estimat Average Glucose Hemoglobin A1c % Calcium Total Bilirubin AST ALT Alkaline Phosphatase Total Protein Albumin Triglycerides Cholesterol LDL Cholesterol, Calc HDL Cholesterol Vitamin B12 Folate TSH 09/23/22 09/24/22 09/24/22 19:58 07:38 11:22 Sodium Potassium Chloride Carbon Dioxide Anion Gap BUN Creatinine Estim Creat Clear Calc Estimated GFR POC Glucose 116 H 115 135 H Fasting Glucose Estimat Average Glucose Hemoglobin A1c % Calcium Total Bilirubin AST ALT Alkaline Phosphatase Total Protein Albumin Triglycerides Cholesterol LDL Cholesterol, Calc HDL Cholesterol Vitamin B12 Folate TSH 09/24/22 09/24/22 09/25/22 16:39 21:50 07:43 Sodium Potassium Chloride Carbon Dioxide Anion Gap BUN Creatinine Estim Creat Clear Calc Estimated GFR POC Glucose 149 H 100 132 H Fasting Glucose Estimat Average Glucose Hemoglobin A1c % Calcium Total Bilirubin AST ALT Alkaline Phosphatase Total Protein Albumin Triglycerides Cholesterol LDL Cholesterol, Calc HDL Cholesterol Vitamin B12 Folate TSH 09/25/22 09/25/22 09/25/22 11:55 16:43 21:23 Sodium Potassium Chloride Carbon Dioxide Anion Gap BUN Creatinine Estim Creat Clear Calc Estimated GFR POC Glucose 98 118 H 99 Fasting Glucose Estimat Average Glucose Hemoglobin A1c % Calcium Total Bilirubin AST ALT Alkaline Phosphatase Total Protein Albumin Triglycerides Cholesterol LDL Cholesterol, Calc HDL Cholesterol Vitamin B12 Folate TSH 09/26/22 07:49 Sodium Potassium Chloride Carbon Dioxide Anion Gap BUN Creatinine Estim Creat Clear Calc Estimated GFR POC Glucose 116 H Fasting Glucose Estimat Average Glucose Hemoglobin A1c % Calcium Total Bilirubin AST ALT Alkaline Phosphatase Total Protein Albumin Triglycerides Cholesterol LDL Cholesterol, Calc HDL Cholesterol Vitamin B12 Folate TSH DS: Summary Hospital Course Hospital Course: Subjective Notes: Garcia Warning and Conditional Voluntary Narrative: Mr. Melchor is a 82 year-old male with hx of schizophrenia who was brought to [facility] due to increase depression and suicidal ideation. In the ED, pt denied any signs of depression and denies suicidal ideation. He appears to have some degree of memory impairments as he was not able to recall events leading to him going to the hospital. Per [employer] crisis assessment, pt's daughter and [facility] RN reported that pt has been reporting increase depression and suicidal thoughts which appear to be related to him starting amantadine some months ago (this is a potential side effect of amantadine). On the unit, pt presents as pleasant and denies suicidal ideation. Pt reports he is doing well and hopes to go home soon. He does not remember telling anyone that he had suicidal ideation. He reports I think this is punishment. He denies VH/AH and does not appear internally preoccupied. He is oriented to place, month and year but not situation and appears to struggle retaining information regarding days prior and reason for him to be brought up to the hospital. Past Psychiatric History: Inpt: multiple in the past but no dates or places reported by pt or daughter [facility]: [facility] Ho[facility] Suicide attempts: none Past medication trials: risperidone Medical Evaluation Reviewed: Yes MRI completed while at [facility] showed global cerebral volume loss in frontal and temporal lobes. Narrowing of the proximal right common carotid but no evidence of acute stroke. HOSPITAL COURSE On the unit, pt was admitted on a CV and placed on 15 minutes checks for safety. Pt adamantly denied suicidal or homicidal ideation. He did not show any signs of psychosis or delusions. He did not recall events leading to this admission. According to his daughter, pt was started on amantadine few months ago and has been presenting as increasingly more depressed and expressing suicidal ideation. Amantadine had been stopped prior to going to ED. On the unit, he presented with a bright affect. We did not re start amantadine and recommended not to do so. He was given risperidone consta on 09/22. Oral risperidone was stopped. There were no incidents of disruptive behaviors nor use of restraints. He was visible on the unit, social with select peers and seen smiling every day. He was pleasant on approach. He was sleeping and eating well. We had family meeting prior to discharge. Daughter denies any safety concerns at this point and reports pt appears to be back to his usual self. OT did explain daughter findings of ACL and supports needed in the community including medication management. Status at Discharge Cognitive/behavioral status at discharge: Pt with bright, non labile affect. No SI/HI. No signs of psychosis or delusions. Sleeping and eating well. Memory/cognitive impairments noted in fact that he couldn't recall events leading to this admission. No signs of aggression towards self or others. Functional status at discharge: uses cane/walker Overall status at discharge: patient is progressing back to baseline Time Spent with Patient Time attestation: Total time managing care of this patient today ____ minutes. Time spent: Greater than 30 minutes Discharge Plan Discharge Anticipated Discharge Date/Time: 09/25/22 08:40 Patient Disposition: Home, Self-Care Discharge Diagnosis: Schizophrenia Referrals: Dr Marques Clemons [Other] - 10/02/22 11:30 am (Your next follow up appointment with your PCP is 10/02/22 at 11:30am. [facility] at 8[facility]30am. ) Dr Arnulfo Ontiveros [Other] - 10/06/22 8:00 am (Your next appointment with Dr Ontiveros for psychiatry is 10/06/22 at 8am at the [facility] [place]. ) [facility] home care [Other] - 09/26/22 (Your RN visits, and home health aide visits to resume at discharge. ) [facility] Garc[facility] [Other] - 09/27/22 10:00 am (Your discharge follow up appointment with Gary García at the [facility] are on 09/27/22 at 10AM in [place], [place]. The second follow up appointment with Gary García is for 10/18/22 at 10AM. ) [facility] [Other] - 10/06/22 8:30 am Discharge Medications: New docusate sodium 100 mg Capsule 100 mg PO BID Qty: 0 0RF Continued sennosides [senna] 8.6 mg Tablet 17.2 mg PO BEDTIME trazodone 50 mg Tablet 75 mg PO BEDTIME PRN (Reason: Sleep) gabapentin 400 mg Capsule 400 mg PO BID finasteride 5 mg Tablet 5 mg PO DAILY memantine 10 mg Tablet 10 mg PO BID Rx Instructions: Only on days taking Bumex dextroamphetamine sulfate 10 mg Tablet 10 mg PO DAILY Rx Instructions: Sunday through Sunday divalproex 250 mg Tablet Extended Release 24 Hr 750 mg PO BID polyethylene glycol 3350 [Miralax] 17 gram Powder In Packet 17 g PO BID potassium chloride 10 mEq Capsule, Extended Release 10 meq PO BID bumetanide 2 mg Tablet 2 mg PO DAILY aspirin 81 mg Tablet,Delayed Release (Dr/Ec) 81 mg PO DAILY Risperdal Consta 50 mg/2 mL Suspension,Extended Rel Recon 50 mg IM Q14D Label Comments: confirmed with Magnolia Washington [facility] cholecalciferol (vitamin D3) 25 mcg (1,000 unit) Tablet 25 mcg PO BID ferrous sulfate 325 mg (65 mg iron) Tablet 325 mg PO DAILY enoxaparin 40 mg/0.4 mL Syringe 40 mg SUBCUT DAILY rosuvastatin 40 mg Tablet 40 mg PO BEDTIME ascorbic acid (vitamin C) 500 mg PO DAILY Discontinued risperidone 2 mg Tablet 2 mg PO BEDTIME insulin lispro 100 unit/mL Solution 1 sliding scale dose SUBCUT USEASDIRECTD acetaminophen 325 mg Tablet 650 mg PO Q6H PRN (Reason: Pain) docusate sodium [Colace] 100 mg Capsule 100 mg PO BID PRN (Reason: Constipation) risperidone 1 mg Tablet 1 mg PO DAILY amantadine HCl 100 mg PO DAILY Label Comments: Family concerned re: this med causing possible adverse effect On hold at present time metformin 1,000 mg PO BID Label Comments: On hold at present time Confirmed with [facility] Aquaphor Ointment 1 appl TOPICAL DAILY PRN (Reason: Dry Skin) Discharge Orders: Discharge Order (Routine); Ordered 09/26/22 Ordered By: Kayce Chamberlain Diet: Regular diet Activity on Discharge: As tolerated Stand Alone Forms: Patient Portal Discharge page Care Plan Goals: 1. Maintain mood 2. No SI/HI 3. No psychosis or delusions 4. No signs of aggression towards self or others Health Concerns: Follow up with PCP- appointment has been scheduled. Plan of Treatment: 1. Take medications as prescribed 2. Go to nearest ED or call 911 in event of emergency Assessment: Pt with bright affect. No psychosis or delusions. No SI/HI. No signs of aggression towards self or others. Bilat resting tremors. Memory/cognitive impairments noted which affect his ability to recall events leading to this admission.
[2022-09-26] MEDS: Bumetanide 1 MG TABLET 2 MG PO (10:31)
[2022-09-26] MEDS: Divalproex Sodium ER 250 MG TAB.ER.24H 750 MG PO (10:31)
[2022-09-26] MEDS: Ascorbic Acid 500 MG TABLET PO (10:31)
[2022-09-26] MEDS: Gabapentin 400 MG CAPSULE PO (10:31)
[2022-09-26] MEDS: Enoxaparin Sodium 40 MG/0.4 ML SYRINGE SUBCUT (10:32)
[2022-09-26] MEDS: Cholecalciferol (Vitamin D3) 25 MCG TABLET PO (10:32)
[2022-09-26] MEDS: risperiDONE 1 MG TABLET PO (10:32)
[2022-09-26] MEDS: Aspirin Enteric Coated 81 MG TABLET.DR PO (10:32)
[2022-09-26] MEDS: Ferrous Sulfate 324 MG TABLET.DR PO (10:32)
[2022-09-26] MEDS: Docusate Sodium 100 MG CAPSULE PO (10:32)
[2022-09-26] MEDS: Memantine HCl 10 MG TABLET PO (10:32)
[2022-09-26] MEDS: Finasteride 5 MG TABLET PO (10:36)
[2022-09-26] MEDS: polyethylene glycoL 3350 17 GM POWD.PACK PO (10:36)
== END 2022-09-26 13:50 | disposition home or self-care (01) | DRG 885 ==
PROVIDERS: Admitting Provider Psychiatry & Neurology Psychiatry; Visit Provider Social Worker
DX: F20.9 Schizophrenia, unspecified (principal); R45.851 Suicidal ideations; G21.19 Other drug induced secondary parkinsonism; I50.32 Chronic diastolic (congestive) heart failure; E11.40 Type 2 diabetes mellitus with diabetic neuropathy, unspecified; Z91.199 Patient's noncompliance with other medical treatment and regimen due to unspecified reason; Z85.51 Personal history of malignant neoplasm of bladder; Z88.8 Allergy status to other drugs, medicaments and biological substances; Z79.82 Long term (current) use of aspirin; Z79.899 Other long term (current) drug therapy
CPT/HCPCS: 36415; 80053; 80061; 82607; 82746; 82947; 83036; 84443; J1650